=== PATIENT | male | born 1940 | race Caucasian/White ===

== ENCOUNTER 2021-12-19 07:39 | Emergency (ER) | payer MEDICARE, OTHER | END 2021-12-19 08:39 | disposition home or self-care (01) | LOC: JP.ED 07:39 | DX: S20.212A Contusion of left front wall of thorax, initial encounter (principal); I10 Essential (primary) hypertension; E78.00 Pure hypercholesterolemia, unspecified; Z88.8 Allergy status to other drugs, medicaments and biological substances; Z79.899 Other long term (current) drug therapy; W01.10XA Fall on same level from slipping, tripping and stumbling with subsequent striking against unspecified object, initial encounter | CPT/HCPCS: 99281; 99283 ==